=== PATIENT | male | born 1950 | race Hispanic/Latino ===

== ENCOUNTER → 2018-09-04 | Outpatient (CLI) | payer MEDICARE ==
[~2018-09-04] MED LIST: AMLODIPINE BESYL5 MG PO; ASPIRIN81 MG PO; LISINOPRIL10 MG PO; PANTOPRAZOLE SO40 MG PO; TAMSULOSIN HCL0.4 MG PO; ZOFRAN ODT4 MG PO
--- NOTE | 2018-09-07 11:57 | Diagnostic Imaging Report ---
PROCEDURE:X-RAY ABDOMEN - KUB COMPARISON:KUB 01/22/2017 (report available but images are not available for review at the time of this dicatation). INDICATIONS:CALCULUS OF KIDNEY FINDINGS: There is a non-obstructed bowel-gas pattern. Bowel gas partially obscures visualization of the kidneys. There is a 4 mm calcification overlying the right lower pole kidney and 6 mm calcification overlying the right mid pole kidney. There are two 3 mm calcifications overlying the left upper pole kidney. Status post cholecystectomy. Degenerative changes of the lower lumbar spine and bilateral sacroiliac joints without evidence of acute bony abnormality. CONCLUSION: Likely bilateral renal stones measuring up to 6 mm in the right mid pole kidney. Dictated by: VERA WHITT M.D. on 09/07/2018 at 12:06 Electronically approved by: VERA WHITT M.D. on 09/07/2018 at 12:06
== END ==
LOC: RAD 14:05
PROVIDERS: ATTEND Urology
DX: N20.0 Calculus of kidney (principal)
CPT/HCPCS: 74018

== ENCOUNTER → 2018-10-19 | Outpatient (CLI) | payer MEDICARE ==
--- NOTE | 2018-10-19 10:21 | Diagnostic Imaging Report ---
EXAM: CT Abdomen and Pelvis WITHOUT contrast INDICATION: Renal calculus COMPARISON: KUB 01/22/2017. TECHNIQUE: Abdomen and pelvis were scanned utilizing a multidetector helical scanner from the lung base to the pubic symphysis without administration of IV contrast. Absence of intravenous contrast decreases sensitivity for detection of focal lesions and vascular pathology. Coronal and sagittal reformations were obtained. Routine protocol was performed. IV CONTRAST: None. ORAL CONTRAST: Water RADIATION DOSE: Total DLP: 650.2 mGy*cm COMPLICATIONS: None FINDINGS: LINES and TUBES: None. LOWER THORAX: Unremarkable HEPATOBILIARY: Subcentimeter left hepatic lobe hypodensity is too small to characterize but likely represents a cyst. No biliary ductal dilation. Status post cholecystectomy. SPLEEN: No splenomegaly. Multiple calcified splenic granulomas. PANCREAS: Limited evaluation in the absence of contrast. No focal masses or ductal dilatation. ADRENALS: No adrenal nodules KIDNEYS/URETERS: No hydronephrosis. No evidence of solid mass. Simple appearing left midpole renal cyst. There are bilateral nonobstructing renal stones, these include a 4 mm right mid pole stone on series 3, image 61, two adjacent right lower pole stones measuring 4 mm and 2 mm on image 66, and punctate 2 mm left mid pole stones. No evidence of ureteral stone. Nonspecific mild bilateral perinephric stranding. GI TRACT: No abnormal distention, wall thickening, or evidence of bowel obstruction. Appendix is normal. PELVIC ORGANS/BLADDER: The bladder is unremarkable in appearance. There is prostatomegaly, measuring up to 5.6 cm. LYMPH NODES: No lymphadenopathy. VESSELS: Moderate atherosclerotic calcifications of the abdominal aorta and branch vessels. PERITONEUM / RETROPERITONEUM: No free air or fluid. BONES: Degenerative changes of the visualized spine without suspicious lytic or blastic lesions. IMPRESSION: Bilateral non-obstructing renal stones measuring up to 4 mm on the right and 2 mm on the left. Signed by: Dr. Dante Angulo MD on 10/19/2018 10:18 AM
== END ==
LOC: CT 09:18
PROVIDERS: ATTEND Urology
DX: N20.0 Calculus of kidney (principal)
CPT/HCPCS: 74176

== ENCOUNTER → 2019-01-22 | Day surgery (SDC) | payer MEDICARE ==
[2019-01-20 14:23] LABS: BASOPHILS % 0.5 % (0.0-1.0); EOSINOPHILS # (AUTO) 0.2 (0.0-0.4); EOSINOPHILS % 2.9 % (0.0-6.0); HEMATOCRIT 42.7 % (38.2-49.6); HEMOGLOBIN 14.3 g/dL (14.0-18.0); LYMPHOCYTES # (AUTO) 1.3 (1.0-3.2); LYMPHOCYTES % 17.2 % (18.0-39.1); MEAN CORPUSCULAR HGB CONC 33.5 g/dL (31-35); MEAN CORPUSCULAR VOLUME 89.5 fL (81-99); MONOCYTES # (AUTO) 0.6 (0.2-0.8); MONOCYTES % 8.1 % (4.4-11.3); NEUTROPHILS # (AUTO) 5.4 (2.1-6.9); NEUTROPHILS % 70.9 % (38.7-80.0); PLATELET COUNT 160 x10e3/uL (140-360); RED BLOOD COUNT 4.77 x10e6/uL (4.3-5.7); RED CELL DISTRIBUTION WIDTH 13.9 % (11.7-14.4)
[2019-01-20 14:43] LABS: CALCIUM 9.8 mg/dL (8.4-10.2); CREATININE, SERUM 1.29 mg/dL (0.72-1.25)
--- NOTE | 2019-01-20 15:45 | Diagnostic Imaging Report ---
Exam: KUB-2 views Clinical History: Preoperative, renal stones. Comparison: None. Findings: There are calcifications measuring 5 mm and 6 mm overlying the right mid kidney and 3 mm overlying the right lower kidney. Bowel gas partially obscures visualization of the left kidney. No evidence of calcification overlying the left kidney or expected location of the ureters. Nonobstructive bowel gas pattern. Status post cholecystectomy. No acute osseous abnormalities. Impression: Right-sided renal stones measuring up to 6 mm. Signed by: Dr. Dante Angulo MD on 01/20/2019 3:42 PM
--- NOTE | 2019-01-20 15:50 | Diagnostic Imaging Report ---
EXAMINATION: CHEST 2 VIEWS INDICATION: Pre-admit. COMPARISON: None FINDINGS: TUBES and LINES: None. LUNGS: Lungs are well inflated. Lungs are clear. There is no evidence of pneumonia or pulmonary edema. PLEURA: No pleural effusion or pneumothorax. HEART AND MEDIASTINUM: The cardiomediastinal silhouette is unremarkable. BONES AND SOFT TISSUES: No acute osseous abnormality. UPPER ABDOMEN: No free air under the diaphragm. Status post cholecystectomy. IMPRESSION: No acute radiographic abnormality. Signed by: Dr. Dante Angulo MD on 01/20/2019 3:46 PM
[~2019-01-22] MED LIST changes: +BELLADONNA/OPIUM 60 MG SUPP PR ONE; +CEFTRIAXONE SOD 1 GM/NS 50 ML 50 ML IV ONE; +DESFLURANE 240 ML BTL INH ONE; +DEXAMETHASONE SOD PHOS INJ 4 MG/ML VIAL ONE; +FENTANYL CITRATE/PF 100MCG/2 ML INJ ONE; +IOPAMIDOL 610MG/1ML 300 MG/ML VIAL IV ONE; +LIDOCAINE HCL 2% JELLY 5 ML TUBE ONE; +LIDOCAINE HCL 2% LOCAL INJ 5 ML SDV VIAL INJ ONE; +MIDAZOLAM HCL 2 MG/2 ML VIAL ONE; +ONDANSETRON HCL INJ 2MG/ML 2ML 2 MG/ML VIAL ONE; +PROPOFOL IV EMULSION 10 MG/ML 20 ML VIAL ONE
--- OUTSIDE RECORDS SUMMARY | 2019-01-22 05:18 | XMS REPORT ---
[facility] Address Unknown Phone Unavailable Care Team Providers Care Stock Mixer Name Role Phone ANABELA FOREMAN Unavailable Unavailable Problems This patient has no known problems. Allergies, Adverse Reactions, Alerts This patient has no known allergies or adverse reactions. Medications This patient has no known medications. Results Test Description Test Time Test Comments Text Results Atomic Results Result Comments CHEST 2 VIEWS 2019-01-20 15:43:00 [place] [address] Patient Name: ALEJANDRA DUONG MR #: [id number] : 1950 Age/Sex: 68/M Req #: [id number] Adm Physician: Ordered by: ANABELA FOREMAN MD Report #: [id number] Location: OR Room/Bed: Procedure: [id number] DX/CHEST 2 VIEWS Exam Date: 01/20/19 Exam Time: 1410 REPORT STATUS: Signed EXAMINATION: CHEST 2 VIEWS INDICATION: Pre-admit. COMPARISON: None FINDINGS: TUBES and LINES: None. LUNGS: Lungs are well inflated. Lungs are clear. There is no evidence of pneumonia or pulmonary edema. PLEURA: No pleural effusion or pneumothorax. HEART AND MEDIASTINUM: The cardiomediastinal silhouette is unremarkable. BONES AND SOFT TISSUES: No acute osseous abnormality. UPPER ABDOMEN: No free air under the diaphragm. Status post cholecystectomy. IMPRESSION: No acute radiographic abnormality. Signed by: Dr. Vera Whitt MD on 01/20/2019 3:46 PM Dictated By: VERA WHITT MD 45 Transcribed By: NOMAN on 01/20/191545 COPY TO: ANABELA FOREMAN MD ABDOMEN-1VIEW (KUB) 2019-01-20 15:39:00 [place] [address] Patient Name: ALEJANDRA DUONG MR #: [id number] : 1950 Age/Sex: 68/M Req #: [id number] Adm Physician: Ordered by: ANABELA FOREMAN MD Report #: [id number] Location: OR Room/Bed: Procedure: [id number] DX/ABDOMEN-1VIEW (KUB) Exam Date: 01/20/19 Exam Time: 1420 REPORT STATUS: Signed Exam: KUB-2 views Clinical History: Preoperative, renal stones. Comparison: None. Findings: There are calcifications measuring 5 mm and 6 mm overlying the right mid kidney and 3 mm overlying the right lower kidney. Bowel gas partially obscures visualization of the left kidney. No evidence of calcification overlying the left kidney or expected location of the ureters. Nonobstructive bowel gas pattern. Status post cholecystectomy. No acute osseous abnormalities. Impression: Right-sided renal stones measuring up to 6 mm. Signed by: Dr. Vera Whitt MD on 01/20/2019 3:42 PM Dictated By: VERA WHITT MD 41 Transcribed By: NOMAN on 01/20/191541 COPY TO: ANABELA FOREMAN MD CT ABDOMEN/PELVIS WO 2018-10-19 10:10:00 [facility] [address] [place] [address] Patient Name: ALEJANDRA DUOGN MR #: [id number] : 1950 Age/Sex: 68/M Req #: [id number] Adm Physician: Ordered by: ANABELA FOREMAN MD Report #: [id number] Location: CT Room/Bed: Procedure: [id number] CT/CT ABDOMEN/PELVIS WO Exam Date: 10/19/18 Exam Time: 951 REPORT STATUS: Signed EXAM: CT Abdomen and Pelvis WITHOUT contrast IND ICATION: Renal calculus COMPARISON: KUB 01/22/2017. TECHNIQUE: Abdomen and pelvis were scanned utilizing a multidetector helical scanner from the lung base to the pubic symphysis without administration of IV contrast. Absence of intravenous contrast decreases sensitivity for detection of focal lesions and vascular pathology. Coronal and sagittal reformations were obtained. Routine protocol was performed. IV CONTRAST: None. ORAL CONTRAST: Water RADIATION DOSE: Total DLP: 650.2 mGy*cm COMPLICATIONS: None FINDINGS: LINES and TUBES: None. LOWER THORAX: Unremarkable HEPATOBILIARY: Subcentimeter left hepatic lobe hypodensity is too small to characterize but likely represents a cyst. No biliary ductal dilation. Status post cholecystectomy. SPLEEN: No splenomegaly. Multiple calcified splenic granulomas. PANCREAS: Limited evaluation in the absence of contrast. No focal masses or ductal dilatation. ADRENALS: No adrenal nodules KIDNEYS/URETERS: No hydronephrosis. No evidence of solid mass. Simple appearing left midpole renal cyst. There are bilateral nonobstructing renal stones, these include a 4 mm right mid pole stone on series 3, image 61, two adjacent right lower pole stones measuring 4 mm and 2 mm on image 66, and punctate 2 mm left mid pole stones. No evidence of ureteral stone. Nonspecific mild bilateral perinephric stranding. GI TRACT: No abnormal distention, wall thickening, or evidence of bowel obstruction. Appendix is normal. PELVIC ORGANS/BLADDER: The bladder is unremarkable in appearance. There is prostatomegaly, measuring up to 5.6 cm. LYMPH NODES: No lymphadenopathy. VESSELS: Moderate atherosclerotic calcifications of the abdominal aorta and branch vessels. PERITONEUM / RETROPERITONEUM: No free air or fluid. BONES: Degenerative changes of the visualized spine without suspicious lytic or blastic lesions. IMPRESSION: Bilateral non-obstructing renal stones measuring up to 4 mm on the right and 2 mm on the left. Signed by: Dr. Vera Whitt MD on 10/19/2018 10:18 AM Dictated By: VERA WHITT MD 1018 Transcribed By: NOMAN on 10/19/18 1018 COPY TO: ANABELA FOREMAN MD ABDOMEN-1VIEW (KUB) 2018-09-07 12:06:00 [place] [address] Patient Name: ALEJANDRA DUONG MR #: [id number] : 1950 Age/Sex: 68/M Req #: [id number] Adm Physician: Ordered by: ANABELA FOREMAN MD Report #: [id number] Location: [facility] Room/Bed: Procedure: [id number] DX/ABDOMEN-1VIEW (KUB) Exam Date: 09/04/18 Exam Time: 1415 REPORT STATUS: Signed PROCEDURE: X-RAY ABDOMEN - KUB COMPARISON: K UB 01/22/2017 (report available but images are not available for review at the time of this dicatation). INDICATIONS: CALCULUS OF KIDNEY FINDINGS: There is a non-obstructed bowel-gas pattern. Bowel gas partially obscures visualization of the kidneys. There is a 4 mm calcification overlying the right lower pole kidney and 6 mm calcification overlying the right mid pole kidney. There are two 3 mm calcifications overlying the left upper pole kidney. Status post cholecystectomy. Degenerative changes of the lower lumbar spine and bilateral sacroiliac joints without evidence of acute bony abnormality. CONCLUSION: Likely bilateral renal stones measuring up to 6 mm in the right mid pole kidney. Dictated by: VERA WHITT M.D. on 09/07/2018 at 12:06 Electronically approved by: VERA WHITT M.D. on 09/07/2018 at 12:06 Dictated By: VERA WHITT MD 1206 Transcribed By: MIQUEL on 09/07/18 1206 COPY TO: ANABELA FOREMAN MD
[2019-01-22 09:55] VITALS: BP 118/68
--- NOTE | 2019-02-25 05:16 | Operative Report ---
DATE OF PROCEDURE: 02/21/2019 SURGEON: Kali Pantoja MD PREOPERATIVE DIAGNOSES: 1. Left nephrolithiasis. 2. Obstructive benign prostatic hyperplasia. 3. Incomplete bladder emptying. POSTOPERATIVE DIAGNOSES: 1. Left nephrolithiasis. 2. Obstructive benign prostatic hyperplasia. 3. Incomplete bladder emptying. OPERATIONS PERFORMED: Note: These were all staged procedures as part of a multi-stage and multi-step process in managing the patient's urolithiasis. 1. Left-sided extracorporeal shockwave lithotripsy (separate procedure performed for the left-sided nephrolithiasis. 2. Cystourethroscopy with bilateral ureteral catheterization and retrograde ureteropyelography (separate procedure performed for the BPH and incomplete bladder emptying). 3. Interpretation of retrograde ureteropyelography. 4. Supervision of fluoroscopy, no radiologist present. ANESTHESIA: General. COMPLICATIONS: None. CLINICAL SUMMARY: Daryn Melchor is a 68-year-old man with bilateral nephrolithiasis. He is brought for the above procedures. He is aware of the risks of bleeding, infection, injury to adjacent structures, need for additional procedures and elected to proceed. OPERATIVE PROCEDURE IN DETAIL: Informed consent was verified. Daryn Melchor was properly identified, taken to the operating room, placed on the lithotripsy table in supine position. Anesthesia was uneventfully begun. The patient's left nephrolithiasis was localized with biplanar fluoroscopy. A total of 3000 shocks were delivered with fragmentation noted. The patient was then carefully and gently repositioned in dorsal lithotomy position with all pressure points well padded. His genitalia were prepared and draped in usual sterile fashion. The cystoscope sheath with the visual obturator in place was atraumatically inserted into the patient's urethra and was guided down the unremarkable distal urethra through the normal sphincteric region through the prostate bed, which was significant for bilobar prostatic hypertrophy with an elevated median bar with stones embedded in the prostatic urethral mucosa consistent with chronic prostatitis. We entered the patient's bladder and drained it. Panendoscopy revealed mild trabeculations, but no tumors, no stones, and no diverticula, normally positioned and configured ureteral orifices were identified. A ureteral catheter was used to cannulate each ureter and retrograde ureteropyelogram was performed. Interpretation of retrograde ureteropyelography: Contrast was instilled in retrograde fashion bilaterally. There were filling defects in the left collecting system corresponding to location of the patient's lithotripsy. This corresponds to stone fragments as well as blood clots. There was no hydronephrosis bilaterally. Unobstructed drainage was observed fluoroscopically. The patient's bladder was drained. The cystoscope was withdrawn. The belladonna and opium suppository was placed revealing an enlarged prostate that was smooth, non-fluctuant without any nodules. The patient was then uneventfully reversed from anesthesia and taken to recovery room in stable condition. There were no complications during the procedure and the patient tolerated the procedure well. Plans will be to return the patient to the operating room for a right ESWL, ongoing urological followup including metabolic stone workup and stone prevention management are definitely indicated. Kali Pantoja MD OH/MODL /[id number] cc: Yoel Lacy MD
== END | disposition home or self-care (01) ==
LOC: EDBD → OR 05:16
PROVIDERS: ATTEND Urology
DX: N20.0 Calculus of kidney (principal); N40.1 Benign prostatic hyperplasia with lower urinary tract symptoms; N13.8 Other obstructive and reflux uropathy; R39.14 Feeling of incomplete bladder emptying; R35.1 Nocturia; N42.0 Calculus of prostate; N32.89 Other specified disorders of bladder; I10 Essential (primary) hypertension; K21.9 Gastro-esophageal reflux disease without esophagitis; R00.1 Bradycardia, unspecified; Z01.810 Encounter for preprocedural cardiovascular examination; Z01.812 Encounter for preprocedural laboratory examination; Z01.818 Encounter for other preprocedural examination; Z79.82 Long term (current) use of aspirin
CPT/HCPCS: 36415; 50590; 71046; 74018; 80048; 83970; 84550; 85025; 93005; C1758; J0696; J1100; J2001 ×2; J2250; J2405; J2704; Q9967

== ENCOUNTER → 2019-04-23 | Day surgery (SDC) | payer MEDICARE ==
[2019-04-20 12:09] LABS: BASOPHILS % 0.6 % (0.0-1.0); EOSINOPHILS # (AUTO) 0.2 (0.0-0.4); EOSINOPHILS % 3.5 % (0.0-6.0); HEMATOCRIT 41.3 % (38.2-49.6); HEMOGLOBIN 13.5 g/dL (14.0-18.0); LYMPHOCYTES # (AUTO) 1.5 (1.0-3.2); MEAN CORPUSCULAR HEMOGLOBIN 29.7 pg (28-32); MEAN CORPUSCULAR HGB CONC 32.7 g/dL (31-35); MEAN CORPUSCULAR VOLUME 90.8 fL (81-99); MONOCYTES # (AUTO) 0.4 (0.2-0.8); MONOCYTES % 6.1 % (4.4-11.3); NEUTROPHILS # (AUTO) 4.4 (2.1-6.9); NEUTROPHILS % 67.3 % (38.7-80.0); PLATELET COUNT 176 x10e3/uL (140-360); RED BLOOD COUNT 4.55 x10e6/uL (4.3-5.7); RED CELL DISTRIBUTION WIDTH 14.1 % (11.7-14.4)
[~2019-04-23] MED LIST changes: +B&O 60MG R/S 60 MG SUPP PR ONE; -BELLADONNA/OPIUM 60 MG SUPP PR ONE; -DESFLURANE 240 ML BTL INH ONE; -FENTANYL CITRATE/PF 100MCG/2 ML INJ ONE; -LIDOCAINE HCL 2% JELLY 5 ML TUBE ONE; +LOSARTAN POTAS100 MG PO; +SEVOFLURANE INHAL SOLN 250 ML PEN BTL ONE
--- NOTE | 2019-04-23 07:05 | NUR ---
SPIRITUAL CARE - Pre-Surgery Assessment: Pt in bed. Pt's at bedside. Pt reported supportive attention from family and friends. Intervention: I provided pastoral presence, hospitality, and sympathetic listening. I acquainted pt with availability of natural resource economist while hospitalized. Outcome: Pt expressed appreciation for visit. No need for follow up indicated at this time. ROBI Villagomezlain Spiritual Care Department O: [phone] Pager: [phone] ([phone] number calling from)
[2019-04-23 10:45] VITALS: BP 143/73
--- NOTE | 2019-04-23 16:53 | Operative Report ---
DATE OF PROCEDURE: 04/23/2019 SURGEON: Kali Pantoja MD PREOPERATIVE DIAGNOSES: 1. Bilateral nephrolithiasis. 2. Obstructive. 3. benign prostatic hyperplasia. 4. Incomplete bladder emptying. POSTOPERATIVE DIAGNOSES: 1. Bilateral nephrolithiasis. 2. Obstructive. 3. benign prostatic hyperplasia. 4. Incomplete bladder emptying. OPERATIONS PERFORMED: 1. Staged right-sided extracorporeal shockwave lithotripsy (separate procedure performed to the right nephrolithiasis). 2. Cystourethroscopy with bilateral ureteral catheterization and retrograde ureteropyelography (separate procedure performed to re-evaluate the upper tracts and lower tract in light of the obstructive BPH and incomplete bladder emptying. 3. Interpretation of retrograde ureteropyelography. SUPERVISION OF FLUOROSCOPY: No radiologist present ANESTHESIA: General. COMPLICATIONS: None. CLINICAL SUMMARY: Daryn Melchor is a 68-year-old man with bilateral nephrolithiasis. Three months ago, he underwent left ESWL. He is brought for the above procedures. He is aware of the risks of bleeding, infection, injury to adjacent structures, need for additional procedures and elected to proceed. OPERATIVE PROCEDURE IN DETAIL: Informed consent was verified. Daryn Melchro was properly identified, taken to the operating room, placed on the lithotripsy table in supine position. Anesthesia was uneventfully begun. The patient's right nephrolithiasis were localized with biplanar fluoroscopy. Total of 3000 shocks were delivered distributing them between the larger of the two stones and the smaller of the two stones. Fragmentation was noted of all stones. The patient was then carefully and gently repositioned in dorsal lithotomy position with all pressure points well padded. His genitalia were prepared and draped in usual sterile fashion. A 22.5-Belarusian cystoscope sheath with the visual obturator in place was atraumatically inserted in the patient's urethra and was guided unremarkable distal urethra through normal sphincteric region through the prostate bed, which was significant for bilobar prostatic hypertrophy with kissing lateral lobes visual obstruction. Panendoscopy in bladder revealed grade 1 trabeculations, but no tumors, no stones, no diverticula, normally positioned configured ureteral orifices were identified. An 8-Belarusian catheter was used to cannulate each ureter and retrograde pyelograms were performed. Interpretation of retrograde ureteropyelography contrast was instilled in a retrograde fashion bilaterally. The small stone residual on the left hand side was noted to be in the upper pole region. There were filling defects in the right side corresponding to stone debris as well as blood clots from the ESWL we performed today. Unobstructed drainage was observed bilaterally fluoroscopically, there was no hydronephrosis. The patient's bladder was drained. Cystoscope was withdrawn. Belladonna and opium suppository were placed revealing a 50 g prostrate that is smooth, non-fluctuant without any nodules. The patient was then uneventfully reversed from anesthesia and taken to recovery room in stable condition. There were no complications of the procedure. Total procedure well exposed. Expressive postop instructions were given. Plans will be to follow the patient up in the office at which point in time, we will perform uroflowmetry and bladder ultrasonography to re-evaluate his obstructive BPH. Kali MD [place]/MODL /[id number] cc: Yoel Lacy MD
== END | disposition home or self-care (01) ==
LOC: OR 06:21
PROVIDERS: ATTEND Urology
DX: N20.0 Calculus of kidney (principal); N40.0 Benign prostatic hyperplasia without lower urinary tract symptoms; N13.8 Other obstructive and reflux uropathy; R35.1 Nocturia; R33.9 Retention of urine, unspecified; N32.89 Other specified disorders of bladder; I10 Essential (primary) hypertension; K21.9 Gastro-esophageal reflux disease without esophagitis; Z01.812 Encounter for preprocedural laboratory examination; Z79.82 Long term (current) use of aspirin
CPT/HCPCS: 36415; 50590; 85025; C1758; J0696; J1100; J2001; J2250; J2405; J2704; Q9967

== ENCOUNTER 2019-12-31 18:40 | Emergency (ER) | payer MEDICARE ==
[~2019-12-31] VITALS: Ht 167.6 cm; Wt 68.0 kg
[~2019-12-31 18:40] MED LIST changes: -ACETAMINOPHEN/CODEINE 300MG - 30MG TAB ONE; -B&O 60MG R/S 60 MG SUPP PR ONE; -CEFTRIAXONE SOD 1 GM/NS 50 ML 50 ML IV ONE; -DEXAMETHASONE SOD PHOS INJ 4 MG/ML VIAL ONE; -GENTAMICIN 80MG/NS 100 ML 200 ML IV ONE; -IOPAMIDOL 610MG/1ML 300 MG/ML VIAL IV ONE; -LIDOCAINE HCL 2% LOCAL INJ 5 ML SDV VIAL INJ ONE; -MIDAZOLAM HCL 2 MG/2 ML VIAL ONE; -ONDANSETRON HCL INJ 2MG/ML 2ML 2 MG/ML VIAL ONE; -PROPOFOL IV EMULSION 10 MG/ML 20 ML VIAL ONE; -SEVOFLURANE INHAL SOLN 250 ML PEN BTL ONE
--- OUTSIDE RECORDS SUMMARY | 2019-12-31 18:43 | XMS REPORT ---
[facility] Address Unknown Phone Unavailable Care Team Providers Care Cream Buyer Name Role Phone ANABELA FOREMAN Unavailable Unavailable Problems This patient has no known problems. Allergies, Adverse Reactions, Alerts This patient has no known allergies or adverse reactions. Medications This patient has no known medications. Results Test Description Test Time Test Comments Text Results Atomic Results Result Comments ABDOMEN-1VIEW (KUB) 2019-04-19 12:53:00 [place] [address] Patient Name: ALEJANDRA DUONG MR #: [id number] : 1950 Age/Sex: 68/M Req #: [id number] Adm Physician: Ordered by: ANABELA FOREMAN MD Report #: [id number] Location: OR Room/Bed: Procedure: [id number] DX/ABDOMEN-1VIEW (KUB) Exam Date: 04/19/19 Exam Time: 1143 REPORT STATUS: Signed Exam: KUB - 2 views Clinical History: Preoperativ e. Comparison: CT abdomen/pelvis 10/19/2018. Findings: Bowel gas partially obscures visualization of the kidneys. Bilateral renal stones are better characterized on prior CT. There is a 3 mm calcification overlying the left upper kidney and a 4 mm calcification overlying the right mid kidney. No evidence of calcification overlying the expected course of the ureters. There are multiple splenic calcifications. Nonobstructive bowel gas pattern. Status post cholecystectomy. Impression: Bilateral nephrolithiasis as above. Signed by: Dr. Vera Whitt MD on 04/19/2019 12:55 PM Dictated By: VERA WHITT MD 54 Transcribed By: NOMAN on 04/19/19 125 COPY TO: ANABELA FOREMAN MD CHEST 2 VIEWS 2019-01-20 15:43:00 [place] [address] Patient Name: ALEJANDRA DUONG MR #: [id number] : 1950 Age/Sex: 68/M Req #: [id number] Adm Physician: Ordered by: ANABELA FOREMAN MD Report #: [id number] Location: OR Room/Bed: Procedure: [id number] DX/CHEST 2 VIEWS Exam Date: 01/20/19 Exam [...] 3:46 PM Dictated By: VERA WHITT MD 1546 Transcribed By: NOMAN on 01/20/19 154 COPY TO: ANBAELA FOREMAN MD ABDOMEN-1VIEW (KUB) 2019-01-20 15:39:00 [place] [address] Patient Name: ALEJANDRA DUONG MR #: [id number] : 1950 Age/Sex: 68/M Req #: [id number] Adm Physician: Ordered by: ANABELA FOREMAN MD Report #: [id number] Location: OR Room/Bed: Procedure: [id number] DX/ABDOMEN-1VIEW (KUB) Exam Date: 01/20/19 Exam Time: [...] 3:42 PM Dictated By: VERA WHITT MD 1542 Transcribed By: NOMAN on 01/20/19 1542 COPY TO: ANABELA FOREMAN MD CT ABDOMEN/PELVIS WO 2018-10-19 10:10:00 [place] [address] Patient Name: ALEJANDRA DUONG MR #: [id number] : 1950 Age/Sex: 68/M Req #: [id number] [facility] Physician: Ordered by: ANABELA FOREMAN MD Report #: [id number] Location: CT Room/Bed: Procedure: [id number] CT/CT ABDOMEN/PELVIS WO Exam Date: 10/19/18 Exam [...] ANABELA FOREMAN MD ABDOMEN-1VIEW (KUB) 2018-09-07 12:06:00 [place] [address] Patient Name: ALEJANDRA DUONG MR #: [id number] : 1950 Age/Sex: 68/M Req #: [id number] Adm Physician: Ordered by: ANABELA FOREMAN MD Report #: [id number] Location: [facility] Room/Bed: Procedure: [id number] DX/ABDOMEN-1VIEW (KUB) Exam Date: 09/04/18 Exam Time: [...]
[2019-12-31] MEDS: MORPHINE SULFATE 2 MG/ML SYR 1ML IM STA (19:47)
[2019-12-31] MEDS ORDERED: MORPHINE SULFATE INJ 4 MG/ML INJ 1ML ONE (19:50)
--- NOTE | 2019-12-31 19:50 | NUR ---
argueta leg bag placed on patient. instructions given to patient and . verbalized understanding of changing out bags and empting urine.
[2019-12-31 20:30] VITALS: BP 166/88
--- NOTE | 2019-12-31 20:30 | NUR ---
pt had a toltal of 900 cc of output not 1800. second entry done in error.
== END 2019-12-31 20:30 | disposition home or self-care (01) ==
LOC: MERGE 18:40 → FSED 18:40
DX: R33.9 Retention of urine, unspecified (principal); N40.1 Benign prostatic hyperplasia with lower urinary tract symptoms; I10 Essential (primary) hypertension; K21.9 Gastro-esophageal reflux disease without esophagitis; Z87.442 Personal history of urinary calculi
CPT/HCPCS: 51702; 81003; 96372; 99283; J2270

== ENCOUNTER → 2019-12-31 | Day surgery (SDC) | payer MEDICARE ==
[2019-12-28 14:31] LABS: BASOPHILS % 0.4 % (0.0-1.0); EOSINOPHILS # (AUTO) 0.1 (0.0-0.4); EOSINOPHILS % 1.7 % (0.0-6.0); HEMATOCRIT 39.3 % (38.2-49.6); HEMOGLOBIN 12.9 g/dL (14.0-18.0); LYMPHOCYTES # (AUTO) 1.4 (1.0-3.2); LYMPHOCYTES % 17.4 % (18.0-39.1); MEAN CORPUSCULAR HEMOGLOBIN 29.1 pg (28-32); MEAN CORPUSCULAR HGB CONC 32.8 g/dL (31-35); MEAN CORPUSCULAR VOLUME 88.7 fL (81-99); MONOCYTES # (AUTO) 0.6 (0.2-0.8); MONOCYTES % 7.7 % (4.4-11.3); NEUTROPHILS # (AUTO) 5.9 (2.1-6.9); NEUTROPHILS % 72.6 % (38.7-80.0); PLATELET COUNT 227 x10e3/uL (140-360); RED BLOOD COUNT 4.43 x10e6/uL (4.3-5.7); RED CELL DISTRIBUTION WIDTH 12.8 % (11.7-14.4)
[~2019-12-31] MED LIST changes: +ACETAMINOPHEN/CODEINE 300MG - 30MG TAB ONE; +FINASTERIDE5 MG PO; +GENTAMICIN 80MG/NS 100 ML 200 ML IV ONE
[2019-12-31 15:00] VITALS: BP 148/72
--- NOTE | 2020-01-16 19:16 | Operative Report ---
DATE OF PROCEDURE: 12/31/2019 SURGEON: Kali Pantoja MD PREOPERATIVE DIAGNOSES: 1. Obstructive benign prostatic hyperplasia. 2. Incomplete bladder .. POSTOPERATIVE DIAGNOSES: 1. Obstructive benign prostatic hyperplasia. 2. Incomplete bladder .. OPERATIONS PERFORMED: 1. Cystourethroscopy with bilateral ureteral catheterization and retrograde ureteropyelography (separate procedure performed for the incomplete bladder emptying). 2. Interpretation of retrograde ureteropyelography. 3. Supervision of fluoroscopy, no radiologist present. 4. Cystourethroscopy with transurethral implantation of UroLift implants (separate procedure performed for the obstructive benign prostatic hyperplasia). ANESTHESIA: General. COMPLICATIONS: None. CLINICAL SUMMARY: Daryn Melchor is a 69-year-old man with the above preoperative diagnoses. He is brought for the above procedures. He is aware of the risks of bleeding, infection, injury to adjacent structures, need for additional procedures and elected to proceed. OPERATIVE PROCEDURE IN DETAIL: Informed consent was verified. Daryn Melchor was properly identified, taken to the operating room, placed on the cystoscopy table in supine position. Anesthesia was uneventfully begun. The patient was then carefully gently repositioned in the dorsal lithotomy position with all pressure points well padded. His genitalia were prepared and draped in usual sterile fashion. The cystoscope sheath with the visual obturator in place was atraumatically inserted. The patient's urethra was guided unremarkable distal urethra through normal sphincteric region through the prostate bed, which was significant for visual obstructing bilobar BPH with kissing lateral lobes. We entered the patient's bladder. Panendoscopy revealed trabeculations, but no tumors, no stones, and no diverticula. Normally positioned configured. Ureteral orifices were identified. An 8-[place] catheter was used to cannulate each ureter and retrograde ureteral pyelograms were performed. Interpretation of retrograde ureteropyelography contrast was instilled in retrograde fashion bilaterally. There were no tumors, no stones, no diverticula. Unobstructed drainage was observed bilaterally fluoroscopically. There was mild fullness of both upper collecting systems. We drained the bladder. The cystoscope was removed. The UroLift cystoscope was introduced atraumatically with the visual obturator. We then deployed four UroLift implants, they were deployed one on either side of anterolaterally, two were deployed 1.5 cm distal to the bladder neck and two were deployed at the level of the verumontanum, this resulted in a continuous anterior channel. The bladder was drained. Cystoscope was withdrawn. The belladonna and opium suppository were placed revealing a 35 g prostate that is smooth, non-fluctuant without any nodules. The patient was then uneventfully reversed from anesthesia and taken to recovery room in stable condition. There were no complications to the procedure. He tolerated the procedure well. Explicit postop instructions were given. We will plan to follow the patient up in the office in approximately 1 month for uroflowmetry and bladder ultrasonography. Kali MD [place]/[facility] /[id number] cc: Dr. Yoel Lacy
== END | disposition home or self-care (01) ==
LOC: OR 06:31
PROVIDERS: ATTEND Urology
DX: N40.1 Benign prostatic hyperplasia with lower urinary tract symptoms (principal); N13.8 Other obstructive and reflux uropathy; R39.14 Feeling of incomplete bladder emptying; N32.89 Other specified disorders of bladder; R35.1 Nocturia; Z87.442 Personal history of urinary calculi; R00.1 Bradycardia, unspecified; I45.10 Unspecified right bundle-branch block; I10 Essential (primary) hypertension; K21.9 Gastro-esophageal reflux disease without esophagitis; S49.92XA Unspecified injury of left shoulder and upper arm, initial encounter; X58.XXXA Exposure to other specified factors, initial encounter; Z01.810 Encounter for preprocedural cardiovascular examination; Z01.812 Encounter for preprocedural laboratory examination; Z79.82 Long term (current) use of aspirin
CPT/HCPCS: 52005; C9740; 36415; 74420; 85025; 93005; J0696; J1100; J1580; J2001; J2250; J2405; L8699

== ENCOUNTER 2020-01-01 10:29 | Emergency (ER) | payer MEDICARE ==
[~2020-01-01] VITALS: Ht 167.6 cm; Wt 68.0 kg
--- NOTE | 2020-01-01 12:05 | NUR ---
US at bedside
--- NOTE | 2020-01-01 12:17 | NUR ---
Urine culture collected and sent to hospital via photoresist contact printer.
--- NOTE | 2020-01-01 12:44 | Diagnostic Imaging Report ---
EXAMINATION : Bilateral lower extremity venous Doppler exam. CLINICAL INDICATION: Bilateral leg swelling COMPARISON: None. DISCUSSION: Flor scale, color Doppler and spectral waveform analysis of bilateral lower extremity deep venous system was performed. Right Lower Extremity: COMMON FEMORAL: Fully compressible with normal spontaneous waveforms. PROXIMAL GREATER SAPHENOUS: Fully compressible with normal spontaneous waveforms. PROFUNDA: Patent with normal spontaneous waveforms. SUPERFICIAL FEMORAL: Fully compressible with normal spontaneous waveforms. Normal response to augmentation. POPLITEAL: Fully compressible with normal spontaneous waveforms. Left Lower Extremity: COMMON FEMORAL: Fully compressible with normal spontaneous waveforms. PROXIMAL GREATER SAPHENOUS: Fully compressible with normal spontaneous waveforms. PROFUNDA: Patent with normal spontaneous waveforms. SUPERFICIAL FEMORAL: Fully compressible with normal spontaneous waveforms. Normal response to augmentation. POPLITEAL: Fully compressible with normal spontaneous waveforms. IMPRESSION: No evidence of deep venous thrombosis above the bilateral calves. The staff physician below has personally reviewed this exam on the date of dictation. Signed by: Dr. Tapan Arreola M.D. on 01/01/2020 12:41 PM
[2020-01-01] MEDS: KETOROLAC TROMETHAMINE 30 MG/ML VIAL IV ONE (12:58)
[2020-01-01] MEDS: HYDROCODONE/APAP 5MG-325MG TAB PO ONE (12:58)
[2020-01-01] MEDS: ONDANSETRON HCL INJ 2MG/ML 2ML 2 MG/ML VIAL IV ONE (12:58)
[2020-01-01 13:00] VITALS: BP 126/61
--- NOTE | 2020-01-01 13:00 | NUR ---
pt voiding, denies any issues at this time.
== END 2020-01-01 13:00 | disposition home or self-care (01) ==
LOC: MERGE 10:29 → FSED 10:29
DX: R33.9 Retention of urine, unspecified (principal); N40.1 Benign prostatic hyperplasia with lower urinary tract symptoms; N30.91 Cystitis, unspecified with hematuria; I10 Essential (primary) hypertension; N28.9 Disorder of kidney and ureter, unspecified
CPT/HCPCS: 80053; 81003; 85025; 85610; 87086; 93925; 93970; 99284; J1885; J2405